=== PATIENT | female | born 1965 | race Caucasian/White ===

== ENCOUNTER 2016-06-15 18:49 | Inpatient (IN) | payer OTHER ==
[~2016-06-15] VITALS: Ht 152.4 cm; Wt 70.7 kg
[2016-06-15 20:20] LABS: BASOPHIL % 0.1 % (0-2); PLATELET COUNT 318 x10^3mcL (130-400); RED CELL DISTRIBUTION WIDTH 16.9 % (11.5-14.5)
[2016-06-15 20:24] LABS: UA SPECIFIC GRAVITY 1.015 (1.005-1.035); microscopic required? YES; urine erythrocyte NEGATIVE (NEGATIVE)
[2016-06-15 20:43] LABS: CALCIUM 7.4 mg/dL (8.5-10.1); CARBON DIOXIDE 30.4 mmol/L (21-32); CHLORIDE SERUM 101 mmol/L (98-107); CREATININE SERUM 0.7 mg/dL (0.6-1.0); GFR1 > 60 mL/min; GLUCOSE SERUM 195 mg/dL (74-106); POTASSIUM SERUM 4.1 mmol/L (3.5-5.1); SODIUM SERUM 136 mmol/L (136-145)
[2016-06-15 20:45] LABS: T3 TOTAL 0.34 ng/mL
[2016-06-15 20:47] LABS: ALKALINE PHOSPHATASE 272 U/L (46-116); ALT/SGPT 19 U/L (14-59); AST/SGOT 11 U/L (15-37); BILIRUBIN TOTAL 0.76 mg/dL (0.20-1.00)
[2016-06-15 20:48] LABS: FREE T4 1.09 ng/dL (0.76-1.46); TOTAL PROTEIN, SERUM 5.1 g/dL (6.4-8.2)
[2016-06-15 20:49] LABS: FREE THYROXINE INDEX 1.7 ug/dL (1.4-4.5); T4(THYROXINE) 4.2 ug/dL (4.7-13.3)
[2016-06-15 20:50] LABS: CREATINE KINASE 11 U/L (26-192)
[2016-06-15 21:10] LABS: CK-MB < 0.5 ng/mL (0-3.6)
[2016-06-15 21:13] LABS: C REACTIVE PROTEIN 45.1 mg/dL (<=0.9)
[2016-06-15 22:46] LABS: ERYTHROCYTE SED RATE > 120 mm/hr (0-30)
[2016-06-16 00:29] LABS: CHOLESTEROL/HDL RATIO 7.2
[2016-06-16 00:54] VITALS: BP 114/71
[2016-06-16] MEDS ORDERED: FOLBIC PO (01:25)
[2016-06-16] MEDS ORDERED: BENAZEPRIL HYDR20 M1 PO (01:27)
[2016-06-16] MEDS ORDERED: METHADONE HCL5 MG PO (01:27)
[2016-06-16] MEDS ORDERED: EFF75 PO (01:28)
[2016-06-16] MEDS ORDERED: COLACE100 MG PO (01:29)
[2016-06-16] MEDS ORDERED: BUSPIRONE HCL15 MG PO (01:29)
[2016-06-16] MEDS ORDERED: PREDNISONE20 MG PO (01:30)
[2016-06-16] MEDS ORDERED: NEU300 PO (01:31)
[2016-06-16] MEDS ORDERED: REG10 (01:31)
[2016-06-16] MEDS ORDERED: ZOFRAN8 MG PO (01:31)
[2016-06-16] MEDS ORDERED: CARVEDILOL3.125 M1 PO (01:32)
[2016-06-16] MEDS ORDERED: KLO0.5 PO (01:33)
[2016-06-16] MEDS ORDERED: PREDNISONE50 MG PO (01:33)
[2016-06-16] MEDS ORDERED: LANTUS SOLOS100 U/M1 SQ (01:34)
[2016-06-16] MEDS ORDERED: NAMENDA10 M2 PO (01:34)
[2016-06-16] MEDS ORDERED: SENNA8.6 M2 PO (01:35)
[2016-06-16] MEDS ORDERED: MIRTAZAPINE15 M2 PO (03:06)
[2016-06-16] MEDS ORDERED: VENLAFAXINE HYD75 M1 PO (03:07)
[2016-06-16] MEDS ORDERED: MEGESTROL AC40 MG/ML PO (03:08)
[2016-06-16 03:11] VITALS: BP 114/71
[2016-06-16 05:52] VITALS: BP 147/89
[2016-06-16 05:56] LABS: PLATELET COUNT 307 x10^3mcL (130-400)
[2016-06-16 05:59] LABS: CALCIUM 7.1 mg/dL (8.5-10.1); CARBON DIOXIDE 28.9 mmol/L (21-32); CHLORIDE SERUM 101 mmol/L (98-107); CREATININE SERUM 0.5 mg/dL (0.6-1.0); GFR1 > 60 mL/min; GLUCOSE SERUM 267 mg/dL (74-106); MAGNESIUM 2.3 mg/dL (1.8-2.4); PHOSPHOROUS 2.6 mg/dL (2.5-4.9); POTASSIUM SERUM 4.6 mmol/L (3.5-5.1); SODIUM SERUM 136 mmol/L (136-145)
[2016-06-16 06:47] LABS: RED CELL DISTRIBUTION WIDTH 15.8 % (11.5-14.5)
[2016-06-16 14:02] VITALS: BP 103/74
[2016-06-16 14:52] LABS: BAND NEUTROPHIL 35 % (0-10); SEGMENTED NEUTROPHILS 58 % (37-75)
[2016-06-16 14:53] LABS: MONOCYTE 2 % (0-7); PLATELET MORPHOLOGY PLATELETS NORMAL
[2016-06-16 14:55] LABS: rbc morphology (normal/abnorm) ABNORMAL (NORMAL)
[2016-06-16 17:52] VITALS: BP 113/70
[2016-06-16 19:30] VITALS: BP 115/73
[2016-06-17 05:41] VITALS: BP 152/92
[2016-06-17 06:16] LABS: PLATELET COUNT 330 x10^3mcL (130-400)
[2016-06-17 06:51] LABS: CALCIUM 6.9 mg/dL (8.5-10.1); CARBON DIOXIDE 25.8 mmol/L (21-32); CHLORIDE SERUM 102 mmol/L (98-107); CREATININE SERUM 0.7 mg/dL (0.6-1.0); GFR1 > 60 mL/min; GLUCOSE SERUM 195 mg/dL (74-106); MAGNESIUM 2.7 mg/dL (1.8-2.4); PHOSPHOROUS 2.3 mg/dL (2.5-4.9); POTASSIUM SERUM 4.6 mmol/L (3.5-5.1); SODIUM SERUM 135 mmol/L (136-145)
[2016-06-17 09:37] LABS: ATYPICAL LYMPH 1 %; BAND NEUTROPHIL 16 % (0-10); BASOPHIL 0 % (0-2); METAMYELOCTE 1 % (0-2); MONOCYTE 5 % (0-7); SEGMENTED NEUTROPHILS 73 % (37-75)
[2016-06-17 09:38] LABS: acanthocyte (spur cell) 1+; ovalocyte/elliptocyte 1+; rbc morphology (normal/abnorm) ABNORMAL (NORMAL)
[2016-06-17 09:39] LABS: PLATELET MORPHOLOGY PLATELETS NORMAL; schistocyte (helmet cell) 2+
[2016-06-17 09:45] VITALS: BP 118/77
[2016-06-17 13:30] VITALS: BP 119/89
[2016-06-17 17:25] VITALS: BP 124/84
[2016-06-17 20:45] VITALS: BP 120/82
[2016-06-18 05:49] VITALS: BP 126/79
[2016-06-18 09:30] VITALS: BP 116/71
[2016-06-18 13:25] VITALS: BP 133/86
[2016-06-18 14:02] LABS: PLATELET COUNT 400 x10^3mcL (130-400)
[2016-06-18 14:19] LABS: RED CELL DISTRIBUTION WIDTH 16.8 % (11.5-14.5)
[2016-06-18 14:20] LABS: BAND NEUTROPHIL 11 % (0-10); BASOPHIL 0 % (0-2); CALCIUM 6.7 mg/dL (8.5-10.1); CARBON DIOXIDE 22.6 mmol/L (21-32); CHLORIDE SERUM 99 mmol/L (98-107); CREATININE SERUM 0.6 mg/dL (0.6-1.0); GFR1 > 60 mL/min; GLUCOSE SERUM 294 mg/dL (74-106); MAGNESIUM 2.2 mg/dL (1.8-2.4); PHOSPHOROUS 1.8 mg/dL (2.5-4.9); POTASSIUM SERUM 4.2 mmol/L (3.5-5.1); SEGMENTED NEUTROPHILS 89 % (37-75); SODIUM SERUM 130 mmol/L (136-145)
[2016-06-18 14:21] LABS: PLATELET MORPHOLOGY PLATELETS INCREASED; rbc morphology (normal/abnorm) NORMAL (NORMAL)
[2016-06-18 15:45] VITALS: BP 149/82
[2016-06-18 20:23] VITALS: BP 121/66
[2016-06-18 23:07] VITALS: BP 118/94
[2016-06-19] VITALS (9 sets, daily range): BP systolic 66–163; BP diastolic 46–108
[2016-06-19 06:18] LABS: CALCIUM 6.9 mg/dL (8.5-10.1); CARBON DIOXIDE 23.3 mmol/L (21-32); CHLORIDE SERUM 103 mmol/L (98-107); CREATININE SERUM 0.7 mg/dL (0.6-1.0); GFR1 > 60 mL/min; GLUCOSE SERUM 61 mg/dL (74-106); MAGNESIUM 2.4 mg/dL (1.8-2.4); PHOSPHOROUS 1.7 mg/dL (2.5-4.9); POTASSIUM SERUM 4.4 mmol/L (3.5-5.1); SODIUM SERUM 132 mmol/L (136-145)
[2016-06-19 06:45] LABS: PLATELET COUNT 312 x10^3mcL (130-400)
[2016-06-19 07:04] LABS: RED CELL DISTRIBUTION WIDTH 16.6 % (11.5-14.5)
[2016-06-19 08:05] LABS: BAND NEUTROPHIL 11 % (0-10); BASOPHIL 0 % (0-2); SEGMENTED NEUTROPHILS 82 % (37-75)
[2016-06-19 08:06] LABS: rbc morphology (normal/abnorm) ABNORMAL (NORMAL)
[2016-06-20] VITALS (16 sets, daily range): BP systolic 79–166; BP diastolic 38–82
[2016-06-20 05:39] LABS: PLATELET COUNT 192 x10^3mcL (130-400)
[2016-06-20 05:41] LABS: BASOPHIL % 0 % (0-2); RED CELL DISTRIBUTION WIDTH 17.6 % (11.5-14.5)
[2016-06-20 07:26] LABS: CALCIUM 6.2 mg/dL (8.5-10.1); CARBON DIOXIDE 20.5 mmol/L (21-32); CHLORIDE SERUM 105 mmol/L (98-107); CREATININE SERUM 0.7 mg/dL (0.6-1.0); GFR1 > 60 mL/min; GLUCOSE SERUM 242 mg/dL (74-106); PHOSPHOROUS 2.8 mg/dL (2.5-4.9); POTASSIUM SERUM 3.5 mmol/L (3.5-5.1); SODIUM SERUM 133 mmol/L (136-145)
[2016-06-20 09:26] LABS: rbc morphology (normal/abnorm) ABNORMAL (NORMAL)
[2016-06-20 14:16] LABS: RED BLOOD CELLS 3.06 M/mm3 (4.10-5.10)
[2016-06-20 15:08] LABS: IRON 17 ug/dL (50-170); TOTAL IRON BINDING CAPACITY 54 ug/dL (250-450)
[2016-06-21] VITALS (17 sets, daily range): BP systolic 84–171; BP diastolic 44–77
[2016-06-21 00:13] LABS: BASOPHIL % 0.1 % (0-2); PLATELET COUNT 161 x10^3mcL (130-400)
[2016-06-21 05:46] LABS: PLATELET COUNT 169 x10^3mcL (130-400)
[2016-06-21 05:58] LABS: CARBON DIOXIDE 16.5 mmol/L (21-32); CHLORIDE SERUM 88 mmol/L (98-107); CREATININE SERUM 0.8 mg/dL (0.6-1.0); GFR1 > 60 mL/min; POTASSIUM SERUM 3.6 mmol/L (3.5-5.1)
[2016-06-21 06:06] LABS: BASOPHIL % 0 % (0-2); RED CELL DISTRIBUTION WIDTH 18.7 % (11.5-14.5)
[2016-06-21 06:28] LABS: CALCIUM 5.6 mg/dL (8.5-10.1); GLUCOSE SERUM 807 mg/dL (74-106); SODIUM SERUM 115 mmol/L (136-145)
[2016-06-21 09:54] LABS: CALCIUM 6.4 mg/dL (8.5-10.1); CARBON DIOXIDE 19.7 mmol/L (21-32); CHLORIDE SERUM 102 mmol/L (98-107); CREATININE SERUM 0.7 mg/dL (0.6-1.0); GFR1 > 60 mL/min; GLUCOSE SERUM 221 mg/dL (74-106); POTASSIUM SERUM 4.2 mmol/L (3.5-5.1); SODIUM SERUM 131 mmol/L (136-145)
[2016-06-21 11:32] LABS: TRANSFERRIN 43 mg/dL (200-370)
[2016-06-22] VITALS (17 sets, daily range): BP systolic 81–130; BP diastolic 41–75
[2016-06-22 05:05] LABS: PLATELET COUNT 162 x10^3mcL (130-400)
[2016-06-22 05:07] LABS: RED CELL DISTRIBUTION WIDTH 17.9 % (11.5-14.5)
[2016-06-22 05:11] LABS: CALCIUM 6.5 mg/dL (8.5-10.1); CARBON DIOXIDE 19.6 mmol/L (21-32); CHLORIDE SERUM 94 mmol/L (98-107); GFR1 > 60 mL/min; GLUCOSE SERUM 205 mg/dL (74-106); POTASSIUM SERUM 4.3 mmol/L (3.5-5.1)
[2016-06-22 05:23] LABS: SODIUM SERUM 117 mmol/L (136-145)
[2016-06-22 05:34] LABS: BAND NEUTROPHIL 12 % (0-10); MONOCYTE 2 % (0-7); SEGMENTED NEUTROPHILS 80 % (37-75); rbc morphology (normal/abnorm) ABNORMAL (NORMAL)
[2016-06-22 05:35] LABS: PLATELET MORPHOLOGY PLATELETS NORMAL
[2016-06-22 10:21] LABS: CALCIUM 6.4 mg/dL (8.5-10.1); CARBON DIOXIDE 19.1 mmol/L (21-32); CREATININE SERUM 1.1 mg/dL (0.6-1.0); POTASSIUM SERUM 4.4 mmol/L (3.5-5.1)
[2016-06-23] VITALS (21 sets, daily range): BP systolic 80–116; BP diastolic 41–98
[2016-06-23 05:00] LABS: PLATELET COUNT 124 x10^3mcL (130-400); RED CELL DISTRIBUTION WIDTH 18.3 % (11.5-14.5)
[2016-06-23 05:01] LABS: CALCIUM 6.5 mg/dL (8.5-10.1); CARBON DIOXIDE 17.3 mmol/L (21-32); CREATININE SERUM 1.3 mg/dL (0.6-1.0); MAGNESIUM 1.9 mg/dL (1.8-2.4); PHOSPHOROUS 4.3 mg/dL (2.5-4.9); POTASSIUM SERUM 4.7 mmol/L (3.5-5.1)
[2016-06-23 05:41] LABS: BAND NEUTROPHIL 6 % (0-10); METAMYELOCTE 3 % (0-2); SEGMENTED NEUTROPHILS 89 % (37-75)
[2016-06-23 05:44] LABS: rbc morphology (normal/abnorm) ABNORMAL (NORMAL)
[2016-06-23 05:45] LABS: acanthocyte (spur cell) 1+; ovalocyte/elliptocyte 1+
[2016-06-24] VITALS (16 sets, daily range): BP systolic 67–127; BP diastolic 28–89
[2016-06-24 06:09] LABS: CARBON DIOXIDE 14.2 mmol/L (21-32); CREATININE SERUM 1.5 mg/dL (0.6-1.0); POTASSIUM SERUM 4.9 mmol/L (3.5-5.1)
[2016-06-24 06:10] LABS: CALCIUM 5.7 mg/dL (8.5-10.1)
[2016-06-24 06:46] LABS: PLATELET COUNT 104 x10^3mcL (130-400); RED CELL DISTRIBUTION WIDTH 18.4 % (11.5-14.5)
[2016-06-24 08:20] LABS: BAND NEUTROPHIL 7 % (0-10); BASOPHIL 0 % (0-2); METAMYELOCTE 2 % (0-2); MONOCYTE 7 % (0-7); SEGMENTED NEUTROPHILS 81 % (37-75)
[2016-06-24 08:22] LABS: rbc morphology (normal/abnorm) ABNORMAL (NORMAL)
[2016-06-24 08:23] LABS: burr cell (echinocyte) 1+
[2016-06-24 08:24] LABS: ovalocyte/elliptocyte 1+
[2016-06-25] VITALS (10 sets, daily range): BP systolic 93–154; BP diastolic 30–93; Ht 152.4 cm; Wt 70.7 kg
[2016-06-25 06:54] LABS: PLATELET COUNT 63 x10^3mcL (130-400); RED CELL DISTRIBUTION WIDTH 18.8 % (11.5-14.5)
[2016-06-25 11:53] LABS: BAND NEUTROPHIL 8 % (0-10); METAMYELOCTE 2 % (0-2); MONOCYTE 2 % (0-7); SEGMENTED NEUTROPHILS 83 % (37-75)
[2016-06-25 11:54] LABS: PLATELET MORPHOLOGY LARGE PLATELET SEEN; rbc morphology (normal/abnorm) ABNORMAL (NORMAL)
== END 2016-06-25 17:55 | disposition expired | DRG 720 ==
LOC: ED 18:49 → DU 23:30 → IC 23:30 → DU 06-16 → IC 06-19 13:34
PROVIDERS: Family Medicine; Specialist; ADMIT Family Medicine
PROC: 5A1955Z Respiratory Ventilation, Greater than 96 Consecutive Hours (ICD-10-PCS; principal; 2016-06-19)
PROC: 0BH17EZ Insertion of Endotracheal Airway into Trachea, Via Natural or Artificial Opening (ICD-10-PCS; 2016-06-19)
PROC: 30233N1 Transfusion of Nonautologous Red Blood Cells into Peripheral Vein, Percutaneous Approach (ICD-10-PCS; 2016-06-20)
PROC: 0JB70ZZ Excision of Back Subcutaneous Tissue and Fascia, Open Approach (ICD-10-PCS; 2016-06-21)
PROC: 5A12012 Performance of Cardiac Output, Single, Manual (ICD-10-PCS; 2016-06-25)
DX: A41.9 Sepsis, unspecified organism (principal); J96.01 Acute respiratory failure with hypoxia; N17.0 Acute kidney failure with tubular necrosis; J69.0 Pneumonitis due to inhalation of food and vomit; G93.41 Metabolic encephalopathy; E43 Unspecified severe protein-calorie malnutrition; A04.7 Enterocolitis due to Clostridium difficile; E87.2 Acidosis; R65.20 Severe sepsis without septic shock; C78.01 Secondary malignant neoplasm of right lung; C79.31 Secondary malignant neoplasm of brain; C79.51 Secondary malignant neoplasm of bone; C50.912 Malignant neoplasm of unspecified site of left female breast; L89.153 Pressure ulcer of sacral region, stage 3; E87.1 Hypo-osmolality and hyponatremia; E86.0 Dehydration; B37.0 Candidal stomatitis; E11.65 Type 2 diabetes mellitus with hyperglycemia; E11.51 Type 2 diabetes mellitus with diabetic peripheral angiopathy without gangrene; I48.91 Unspecified atrial fibrillation; I10 Essential (primary) hypertension; G30.9 Alzheimer's disease, unspecified; F02.80 Dementia in other diseases classified elsewhere, unspecified severity, without behavioral disturbance, psychotic disturbance, mood disturbance, and anxiety; D63.8 Anemia in other chronic diseases classified elsewhere; E03.9 Hypothyroidism, unspecified; E78.5 Hyperlipidemia, unspecified; Z68.21 Body mass index [BMI] 21.0-21.9, adult; Z90.12 Acquired absence of left breast and nipple; Z79.84 Long term (current) use of oral hypoglycemic drugs
CPT/HCPCS: 36600; 82962; 83880; 84439; 87046; 87046-59; 87804; 94150; 97110-GP; A4628; C9113; J0171; J0282; J0330; J0696; J1450; J1644; J1815; J1885; J1940; J1956; J2001; J2060; J2250; J2270; J2310; J2370; J2704; J2920; J2930; J3010; J3490; J7030; J7040; J7042; J7050; J7060; J7620; J7633; J8597; P9016; Q0092; Q0162; Q9967